=== PATIENT | male | born 1985 | race African-American/Black ===

== ENCOUNTER 2018-10-17 16:28 | Emergency (ER) | payer OTHER ==
[~2018-10-17] VITALS: Ht 182.9 cm; Wt 108.9 kg
--- NOTE | 2018-10-17 17:32 | Emergency Room Report ---
History of Present Illness General Chief Complaint: Pain Source: Patient Present Illness HPI 33-year-old male presents to the emergency department complaining of 7 out of 10 in severity persistent pain to the insole of his left ankle times almost one month. Patient reports that pain is worsened after walking long distance he states that he recently started a new job where he stands and walks pretty much the entire time. Patient denies trauma or fall denies suspicion for fracture he denies rashes, bruising, open wounds or previous injury to this extremity. Denies numbness tingling or loss of sensation or gross motor movements of the extremities, Denies CP, Palpitations, LOC, AMS, dizziness, Changes in Vision, weakness or a sudden severe headache.the patient also reports a cold sore on the left upper lip she states that he gets recurrent cold sores and normally takes most likely vera for which he needs a refill. Allergies: Coded Allergies: No Known Allergies (Unverified , 10/17/18) Patient History Past Medical History: see triage record Past Surgical History: none Pertinent Family History: none Reviewed Nursing Documentation: PMH: Agreed; PSxH: Agreed Nursing Documentation-PMH Past Medical History: No Stated History Review of Systems All Other Systems: negative except mentioned in HPI Physical Exam Vital Signs Date Time Temp Pulse Resp B/P (MAP) Pulse Ox O2 Delivery O2 Flow Rate FiO2 10/17/18 16:47 98.8 81 16 123/72 97 Room Air Sp02 EP Interpretation: reviewed, normal General Appearance: no apparent distress, alert, GCS 15, non-toxic Head: normocephalic, atraumatic ENT: hearing grossly normal, normal voice, other - cold sore on the left upper lip. Neck: full range of motion Respiratory: lungs clear, normal breath sounds, speaking full sentences Cardiovascular #1: regular rate, rhythm, no edema, normal capillary refill Cardiovascular #2: 2+ dorsalis pedis (R), 2+ dorsalis pedis (L) Musculoskeletal: back normal, gait/station normal, normal range of motion, tender - TTP to the medial insole/arch area of the right foot. No bony ttp, no obvious deformity, no bruises Neurologic: alert, oriented x3, responsive, motor strength/tone normal, sensory intact, speech normal, grossly normal Psychiatric: judgement/insight normal Skin: normal color, no rash, warm/dry, well hydrated Lymphatic: no adenopathy Medical Decision Making PA Attestation Dr. Penny is my supervising Physician whom patient management has been discussed with. Diagnostic Impression: Primary Impression: Other sprain of foot Additional Impression: Recurrent cold sores ER Course 33-year-old male presents to the emergency department complaining of 7 out of 10 in severity persistent pain to the insole of his left ankle times almost one month. Patient reports that pain is worsened after walking long distance he states that he recently started a new job where he stands and walks pretty much the entire time. Patient denies trauma or fall denies suspicion for fracture he denies rashes, bruising, open wounds or previous injury to this extremity. Denies numbness tingling or loss of sensation or gross motor movements of the extremities, Denies CP, Palpitations, LOC, AMS, dizziness, Changes in Vision, weakness or a sudden severe headache.the patient also reports a cold sore on the left upper lip she states that he gets recurrent cold sores and normally takes most likely vera for which he needs a refill. Ddx considered but are not limited to Fracture, dislocation, contusion, Sprain/ Strain/Spasm, tendonitis, Vital signs: are WNL, pt. is afebrile H&PE are most consistent with musculoskeletal injury will perform imaging to r/ o fractures/dislocations. ORDERS: - X-ray not warranted at this time, no bony TTP, pain in musculature ED INTERVENTIONS: - Motrin PO Uziel wrap applied by oscillograph technician. Pt. remains neurovascularly intact. do not identify emergent condition at this time given this patient's current presentation. D/w pt. conservative treatment, and to follow up with a primary care provider. pt given a list of primary care clinics for follow up. d/w pt. to return to the ED with worsening or new symptoms. DISCHARGE: At this time pt. is stable for d/c to home. Will provide printed patient care instructions, and any necessary prescriptions. Care plan and follow up instructions have been discussed with the patient prior to discharge. Last Vital Signs Date Time Temp Pulse Resp B/P (MAP) Pulse Ox O2 Delivery O2 Flow Rate FiO2 10/17/18 16:47 98.8 81 16 123/72 97 Room Air Disposition: HOME, SELF-CARE Condition: Stable Scripts Valacyclovir Hcl* (VALTREX*) 500 Mg Tablet 500 MG ORAL THREE TIMES A DAY, #21 TAB 0 Refills Prov: Kimi Yanes 10/17/18 Ibuprofen* (MOTRIN*) 600 Mg Tablet 600 MG ORAL THREE TIMES A DAY, #30 TAB 0 Refills Prov: Kimi Yanes 10/17/18 Referrals: SONNY LEE,REFERRING (PCP) Departure Forms: Return to Work Return to Work Date: Oct 20, 2018 Work Restrictions: None, No Heavy Lifting, No Prolonged Standing Other Restrictions: NO standing/walking x 1 week. Return to Full Activity: Oct 24, 2018 Patient Instructions: Foot Sprain Additional Instructions: Take medications as directed. Follow up with a Primary Care Provider in 3-5 days, even if your symptoms have resolved. --Please review list of primary care clinics, if you do not already have a primary care provider Return sooner to ED if new symptoms occur, or current symptoms become worse. - Please note that this Emergency Department Report was dictated using [employer] intern technology software, occasionally this can lead to erroneous entry secondary to interpretation by the dictation equipment. Kimi Yanes Oct 17, 2018 17:32
[2018-10-17] MEDS ORDERED: IBUPROFEN600 MG ORAL (17:34)
[2018-10-17] MEDS ORDERED: VALTREX500 MG ORAL (17:49)
[2018-10-17 18:08] VITALS: BP 123/72
--- NOTE | 2018-10-17 18:09 | NUR ---
ED Nurse Note:becca wrap placed on left ankle, pain med is given pt. was examed, treated and cleared for D/C home by ER provider. PT. received D/C instructions with prescriptions, verbalized understanding and left ER with steady gait and all personal belongings , ID bend removed.
[2018-10-17 18:10] VITALS: BP 123/72
== END 2018-10-17 18:12 | disposition home or self-care (01) ==
LOC: EMR 17:01
DX: S93.602A Unspecified sprain of left foot, initial encounter (principal); X50.9XXA Other and unspecified overexertion or strenuous movements or postures, initial encounter; Y93.01 Activity, walking, marching and hiking; Y92.9 Unspecified place or not applicable; B00.1 Herpesviral vesicular dermatitis
CPT/HCPCS: 99283

== ENCOUNTER 2019-02-01 14:10 | Emergency (ER) | payer OTHER ==
[~2019-02-01] VITALS: Ht 182.9 cm; Wt 113.4 kg
[~2019-02-01 14:10] MED LIST: IBUPROFEN600 MG ORAL; VALTREX500 MG ORAL
--- NOTE | 2019-02-01 14:28 | NUR ---
ED Nurse Note: Patient walked in for chest pain on the right side mainly, patient reports it "sometimes move around the chest and to shoulders" /. patient is alert awake x4 ambulatory. patient's breathing is even and unlabored
--- NOTE | 2019-02-01 14:42 | NUR ---
ED Nurse Note: xray called spoke with marisol for cxr
[2019-02-01 14:49] VITALS: BP 126/92
[2019-02-01 15:25] VITALS: BP 121/97
[2019-02-01 15:28] VITALS: BP 131/82
--- NOTE | 2019-02-01 15:30 | Diagnostic Imaging Report ---
Indication: Status post Technique: XRAY Chest 1v Comparison: None Findings: Heart size and mediastinal contours are within normal limits given technique. There is no focal consolidation, pneumothorax or pleural effusion. Osseous structures demonstrate no acute abnormality. Impression: No radiographic evidence of acute cardiopulmonary disease.
--- NOTE | 2019-02-01 15:32 | NUR ---
ER DISCHARGE NOTE: Patient is cleared to be discharged per MIESHA Penny, pt is aox4, on room air, with stable vital signs. pt was given dc and prescription instructions, pt was able to verbalize understanding, pt id band removed without complications. pt is able to ambulate with steady gait. pt took all belongings.
--- NOTE | 2019-02-01 15:37 | Emergency Room Report ---
History of Present Illness General Chief Complaint: Chest Pain Source: Patient Present Illness HPI Patient persist with complaints of left upper chest pain ongoing for the past 5 days Denies any change with exertion denies any change with position Denies any shortness of breath denies any abdominal pain patient does smoke marijuana He reports that there is a pleuritic component to it at times Denies any recent travel denies any calf pain or swelling Allergies: Coded Allergies: No Known Allergies (Unverified , 10/17/18) Patient History Past Medical History: see triage record Pertinent Family History: none Reviewed Nursing Documentation: PMH: Agreed; PSxH: Agreed Nursing Documentation-PMH Past Medical History: No Stated History Review of Systems All Other Systems: negative except mentioned in HPI Physical Exam Vital Signs Date Time Temp Pulse Resp B/P (MAP) Pulse Ox O2 Delivery O2 Flow Rate FiO2 02/01/19 14:19 98.4 74 20 137/93 97 Room Air Sp02 EP Interpretation: reviewed, normal General Appearance: well appearing, no apparent distress Head: normocephalic, atraumatic Eyes: bilateral eye PERRL, bilateral eye EOMI ENT: hearing grossly normal, normal pharynx, TMs + canals normal, uvula midline Neck: full range of motion, supple, no meningismus, no bony tend Respiratory: lungs clear, normal breath sounds, no rhonchi, no respiratory distress, no retraction, no accessory muscle use Cardiovascular #1: normal peripheral pulses, regular rate, rhythm, no edema, no gallop, no JVD, no murmur Gastrointestinal: normal bowel sounds, non tender, soft, no mass, no organomegaly, non-distended, no guarding, no hernia, no pulsatile mass, no rebound Genitourinary: no CVA tenderness Musculoskeletal: normal inspection Neurologic: oriented x3, responsive, manager of production III-XII nml as tested, motor strength/ tone normal, sensory intact Psychiatric: mood/affect normal Skin: normal color, no rash, warm/dry, palpation normal Lymphatic: normal inspection, no adenopathy Medical Decision Making Diagnostic Impression: Primary Impression: Chest pain ER Course Patient is a fairly complex patient with multiple differential to consideration including but not limited to cardiac cardiopulmonary and vascular emergencies Given the patient's clinical exam comorbidities and finding my suspicion for cardiac pathology is fairly low EKG shows a sinus rhythm no ST changes Given the patient's smoking history x-ray was also obtained is negative Given some of the pleuritic component pulmonary embolism is considered patient scoring for pulmonary embolism is low and does not indicate further CT imaging at this time Heart rate normal Oxygenation normal No obvious choice of breath Patient disposition for close outpatient follow-up EKG Diagnostic Results Rate: normal Rhythm: NSR ST Segments: no acute changes Rhythm Strip Diag. Results EP Interpretation: yes Rate: 67 Rhythm: NSR, no PVC's, no ectopy Chest X-Ray Diagnostic Results Chest X-Ray Diagnostic Results : Chest X-Ray Ordered: Yes # of Views/Limited/Complete: 1 View Indication: Chest Pain EP Interpretation: Yes Interpretation: no consolidation, no effusion, no pneumothorax Impression: No acute disease Electronically Signed by: Yogesh Penny DO Last Vital Signs Date Time Temp Pulse Resp B/P (MAP) Pulse Ox O2 Delivery O2 Flow Rate FiO2 02/01/19 15:28 98.4 80 20 131/82 100 Room Air Status: improved Disposition: HOME, SELF-CARE Condition: Improved Referrals: [facility] Patient Instructions: Nonspecific Chest Pain, Pleurisy, [id number] Additional Instructions: Patient is provided with the discharge instructions notified to follow up with primary doctor in the next 2-3 days otherwise return to the er with any worsening symptoms. Please note that this report is being documented using [employer] technology. This can lead to erroneous entry secondary to incorrect interpretation by the dictating instrument. Yogesh Penny DO Feb 01, 2019 15:37
== END 2019-02-01 15:45 | disposition home or self-care (01) ==
LOC: EMR 15:44
DX: R07.9 Chest pain, unspecified (principal)
CPT/HCPCS: 71045; 93005; 99283